=== PATIENT | female | born 1965 | race Caucasian/White ===

== ENCOUNTER 2020-10-29 17:52 | Emergency (ER) | payer OTHER ==
[~2020-10-29] VITALS: Ht 172.7 cm; Wt 129.3 kg
[~2020-10-29 17:52] MED LIST: COZAAR 25MG TAB25 MG; GLUCOPHAGE XR500 MG; ZOCOR 10 MG TAB10 MG; [UNRECOGNIZED DRUG - REMARK]
[2020-10-29 19:55] LABS: URINE BILIRUBIN NEGATIVE (Negative); URINE BLOOD NEGATIVE (Negative); URINE CLARITY CLEAR; URINE COLOR YELLOW; URINE GLUCOSE-RANDOM* NEGATIVE (Negative); URINE KETONES NEGATIVE (Negative); URINE LEUKOCYTES-REFLEX NEGATIVE (Negative); URINE NITRITE-REFLEX NEGATIVE (Negative); URINE PROTEIN (DIPSTICK) NEGATIVE (Negative); URINE SPECIFIC GRAVITY 1.025 (1.005-1.035); URINE UROBILINOGEN 0.2 E.U./dl (0.2-1.0)
[2020-10-29 21:05] LABS: ABSOLUTE NEUTROPHILS 9.2 thou/uL (1.4-8.2); BASOPHILS 1.1 % (0.0-2.0); EOSINOPHILS 1.1 % (0.0-3.0); HEMATOCRIT 47.5 % (37.0-47.0); HEMOGLOBIN 15.7 gm/dL (12.0-15.0); LYMPHOCYTES 30.1 % (24.0-44.0); MCH 29.1 pg (26.0-34.0); MCHC 33.1 g/dL (28.0-37.0); MCV 87.9 fL (80.0-100.0); MONOCYTES 5.6 % (1.0-8.0); PLATELET COUNT 326 thou/uL (150-400); POLYS 62.1 % (36.0-66.0); RBC 5.41 mil/uL (4.20-5.00); RDW 15.6 % (10.5-14.5); WBC 14.9 thou/uL (4.0-11.0)
[2020-10-29 21:11] LABS: ANION GAP 9 mmol/L (7-16); BUN 27 mg/dL (7-18); CALCIUM 9.9 mg/dL (8.5-10.1); CHLORIDE 98 mmol/L (98-107); CO2 32 mmol/L (21-32); CREATININE 1.1 mg/dL (0.6-1.0); GLUCOSE 100 mg/dL (74-106); POTASSIUM 3.7 mmol/L (3.5-5.1); SODIUM 139 mmol/L (136-145)
[2020-10-29 21:21] LABS: ALBUMIN 4.4 g/dL (3.4-5.0); SGOT 33 U/L (15-37); SGPT 66 U/L (14-59); TOTAL BILIRUBIN 0.7 mg/dL (0.2-1.0); TROPONIN-I <0.06 ng/mL (<0.06)
[2020-10-29 22:27] VITALS: BP 116/76
--- NOTE | 2020-10-30 07:28 | EKG ---
[place] [address] [facility] [employer] [place] [address] ELECTROCARDIOGRAM REPORT Name: MARKO LEACH Room #: DEP LUANA Cobb#: [id number] Admission: 10/29/20 Attend Phys: Discharge: 10/29/20 Date of : 63 Report #: [id number] [facility] Test Date: 2020-10-29 Test Time: 20:33:54 Pat Name: MARKO LEACH Department: Room: Gender: F [facility] Cashier: KURT : 1965 Requested By: Everton Schwartz Order Number: [id number] MD: Lucio Villavicencio Measurements Intervals [place] Rate: 81 P: 61 MO: 174 QRS: 20 QRSD: 96 T: 69 QT: 383 QTc: 445 Interpretive Statements Sinus rhythm No previous ECG available for comparison Electronically Signed On 10-30-2020 7:27:51 CDT by Lucio Villavicencio [email or web address] <ELECTRONICALLY SIGNED> By: Lucio Villavicencio MD, [facility] 10/30/20 0727 32 32 Lucio Villavicencio MD, FACC /EPI
== END 2020-10-29 22:27 | disposition home or self-care (01) ==
LOC: ER 17:52
PROVIDERS: Emergency Medicine
DX: R55 Syncope and collapse (principal); I10 Essential (primary) hypertension; E11.9 Type 2 diabetes mellitus without complications; E78.5 Hyperlipidemia, unspecified; Z79.899 Other long term (current) drug therapy; Z88.0 Allergy status to penicillin; Z88.8 Allergy status to other drugs, medicaments and biological substances

== ENCOUNTER 2021-08-02 12:25 | Emergency (ER) | payer OTHER ==
[~2021-08-02] VITALS: Ht 172.7 cm; Wt 124.7 kg
[2021-08-02 16:23] VITALS: BP 111/57
== END 2021-08-02 16:27 | disposition home or self-care (01) ==
LOC: ER 12:25
DX: S16.1XXA Strain of muscle, fascia and tendon at neck level, initial encounter (principal); S30.0XXA Contusion of lower back and pelvis, initial encounter; S70.02XA Contusion of left hip, initial encounter; S40.012A Contusion of left shoulder, initial encounter; S60.212A Contusion of left wrist, initial encounter; S60.211A Contusion of right wrist, initial encounter; S50.02XA Contusion of left elbow, initial encounter; I10 Essential (primary) hypertension; E11.9 Type 2 diabetes mellitus without complications; E78.00 Pure hypercholesterolemia, unspecified; Z79.84 Long term (current) use of oral hypoglycemic drugs; Z79.899 Other long term (current) drug therapy; Z88.6 Allergy status to analgesic agent; Z88.5 Allergy status to narcotic agent; Z88.0 Allergy status to penicillin; Z88.8 Allergy status to other drugs, medicaments and biological substances; V49.49XA Driver injured in collision with other motor vehicles in traffic accident, initial encounter; Y93.89 Activity, other specified; Y92.89 Other specified places as the place of occurrence of the external cause; Y99.8 Other external cause status